=== PATIENT | female | born 1995 | race African-American/Black ===

== ENCOUNTER 2021-12-22 12:16 | Emergency (ER) | payer OTHER ==
[~2021-12-22] VITALS: Ht 175.3 cm; Wt 63.0 kg
[2021-12-22 12:57] VITALS: BP 127/75
== END 2021-12-22 12:58 | disposition home or self-care (01) ==
LOC: ER 12:27
DX: S60.414A Abrasion of right ring finger, initial encounter (principal); W27.8XXA Contact with other nonpowered hand tool, initial encounter; Y93.9 Activity, unspecified; Y92.69 Other specified industrial and construction area as the place of occurrence of the external cause
CPT/HCPCS: 99281

== ENCOUNTER 2022-03-08 11:09 | Emergency (ER) | payer OTHER ==
[~2022-03-08] VITALS: Ht 175.3 cm; Wt 67.0 kg
[2022-03-08] MEDS ORDERED: IBUPROFEN 400MG TABLET PO ONE (12:30)
[2022-03-08] MEDS ORDERED: IBUP-2028 MT ×2 (13:14→15:04)
[2022-03-08 15:11] VITALS: BP 123/76
[2022-03-08] MEDS ORDERED: IBUPROFEN 400MG TABLET PO NR (15:15)
== END 2022-03-08 15:30 ==
LOC: ER 11:24
DX: M25.511 Pain in right shoulder (principal); M54.9 Dorsalgia, unspecified; M54.50 Low back pain, unspecified; V49.9XXA Car occupant (driver) (passenger) injured in unspecified traffic accident, initial encounter; Y93.89 Activity, other specified; Y99.8 Other external cause status
CPT/HCPCS: 99282